=== PATIENT | female | born 1975 | race Caucasian/White ===

== ENCOUNTER 2021-07-04 12:45 | Emergency (ER) | payer MEDICAID ==
[~2021-07-04] VITALS: Ht 165.1 cm; Wt 75.5 kg
--- NOTE | 2021-07-04 12:45 | NUR ---
BIBRA 860 FOR C/O STOMACH DISCOMFORT & BLOODY EMESIS X3 SINCE LAST NIGHT. PT VITALS ARE WITHIN NORMAL LIMITS. BREATHING IS REGULAR AND UNLABORED. PT WAS ATTCHED TO ROBOTICS TECHNOLOGIST AND PULSE OX. WILL CONTINUE TO MONITOR.
--- NOTE | 2021-07-04 12:51 | NUR ---
IV LINE ESTABLISHED L HAND 20G. LABS WERE DRAWN AND AND SENT. LINE WAS CONVERTED TO SALINE LOCK.
--- NOTE | 2021-07-04 12:54 | NUR ---
URINE SPECIMEN WAS COLLECTED AND SENT TO LAB
[2021-07-04] MEDS ORDERED: CT SWABBABLE VALVE TRANS SET 1 EA INFUS.SET MC ONE (12:59)
[2021-07-04] MEDS ORDERED: IOHEXOL-300 100 ML VIAL IV ONE (12:59)
[2021-07-04] MEDS ORDERED: ONDANSETRON HCL/PF 4 MG/2 ML VIAL ONE (13:00)
[2021-07-04] MEDS: ONDANSETRON HCL/PF 4 MG/2 ML VIAL IVP ONE (13:00)
[2021-07-04] MEDS: IV NS 0.9% 1,000 ML BAG IV ONE (13:00)
[2021-07-04 13:06] LABS: BASOPHILS # (AUTO) 0.1 K/uL (0.0-0.2); BASOPHILS % (AUTO) 1.2 % (0.0-2.0); EOSINOPHILS % (AUTO) 1.8 % (0.0-6.0); HEMATOCRIT 36 % (33-45); HEMOGLOBIN 11.8 g/dL (11.5-14.8); MEAN CORPUSCULAR HGB CONC 33 g/dl (31.0-36.0); MEAN CORPUSCULAR VOLUME 85 fL (82-100); MONOCYTES # (AUTO) 0.3 K/uL (0.1-1.30); MONOCYTES % (AUTO) 4.5 % (2.0-12.0); NEUTROPHILS # (AUTO) 4.7 K/uL (1.8-8.9); NEUTROPHILS % (AUTO) 64.5 % (43.0-81.0); PLATELET COUNT (AUTO) 224 K/uL (150-450); RED BLOOD CELL COUNT(AUTO) 4.25 MIL/uL (4.0-5.2); WHITE BLOOD COUNT (AUTO) 7.3 K/uL (4.3-11.0)
[2021-07-04 13:11] LABS: CALCIUM, SERUM 8.6 mg/dL (8.5-10.1); CREATININE 0.7 mg/dL (0.6-1.3); POTASSIUM 3.9 mmol/L (3.5-5.1)
[2021-07-04 13:16] LABS: ALBUMIN 3.5 g/dL (3.4-5.0); BILIRUBIN,DIRECT 0.1 mg/dL (0.0-0.2); BILIRUBIN,TOTAL 0.2 mg/dL (0.2-1.0); TOTAL PROTEIN, SERUM 7.2 g/dL (6.4-8.2)
[2021-07-04 14:01] LABS: BILIRUBIN,URINE Negative (NEGATIVE); COLOR,URINE YELLOW (YELLOW); LEUKOCYTE ESTERASE ,URINE Trace (NEGATIVE); NITRITE, URINE Negative (NEGATIVE); PROTEIN,URINE Negative (NEGATIVE); UGLUCOSE Negative (NEGATIVE); UROBILINOGEN,URINE 0.2 EU/dL (0.2)
[2021-07-04 14:10] LABS: BACTERIA,URINE Few /HPF (None Seen); RBC,URINE NONE SEEN /HPF (0-2); SQUAMOUS EPITHELIAL CELL,UR Few /HPF (None Seen)
--- NOTE | 2021-07-04 15:20 | NUR ---
NEW LINE ESTABLISHED #20G IV R HAND AND CONVERTED TO SALINE LOCK
[2021-07-04] MEDS: OCTREOTIDE 50 MCG/ML AMPUL SQ ONE (15:30)
[2021-07-04] MEDS: PANTOPRAZOLE 40 MG VIAL IV ONE (15:30)
[2021-07-04] MEDS ORDERED: PANTOPRAZOLE 40 MG VIAL ONE (15:39)
[2021-07-04] MEDS ORDERED: OCTREOTIDE 100 MCG/ML VIAL ONE (15:40)
[2021-07-04] MEDS ORDERED: NORMAL SALINE FLUSH 10 ML SYR ONE (15:41)
[2021-07-04] MEDS ORDERED: PANT20TA2 PO (16:44)
[2021-07-04] MEDS ORDERED: ONDA4TAB5 PO (16:44)
--- NOTE | 2021-07-04 16:53 | NUR ---
IV removed. Catheter intact and site benign. Pressure and 4x4 applied to site. No bleeding noted.Patient discharged to home in stable condition. Written and verbal after care instructions given. Patient verbalizes understanding of instruction.
[2021-07-04 16:58] VITALS: BP 111/71
== END 2021-07-04 16:50 | disposition home or self-care (01) ==
LOC: ER 12:47
DX: K20.90 Esophagitis, unspecified without bleeding (principal); R11.2 Nausea with vomiting, unspecified; R10.13 Epigastric pain
CPT/HCPCS: 36415; 71045; 74177; 80048; 80076; 81001; 82962; 83690; 84703; 85025; 85730; 93005; 96361; 96372; 96374; 96375; 99285; A4216; C9113; J2354 ×2; J2405; J7030; Q9967

== ENCOUNTER 2024-11-02 17:18 | Emergency (ER) | payer MEDICAID ==
[~2024-11-02] VITALS: Ht 170.2 cm; Wt 99.8 kg
[~2024-11-02 17:18] MED LIST: ONDA4TAB5 PO; PANT20TA2 PO
[2024-11-02 17:23] VITALS: BP 101/55
[2024-11-02] MEDS ORDERED: BENZONATATE 100 MG CAPSULE PO ONE (17:31)
[2024-11-02] MEDS: BENZONATATE 100 MG CAPSULE PO PRN (17:38)
[2024-11-02] MEDS ORDERED: ACETAMINOPHEN ES 500 MG TABLET ONE (17:39)
[2024-11-02] MEDS: ACETAMINOPHEN ES 500 MG TABLET PO ONE (17:43)
[2024-11-02 18:44] VITALS: TEMP 98.9
[2024-11-02] MEDS ORDERED: ALBU18HF2 INH (18:56)
[2024-11-02] MEDS ORDERED: BENZ-13 PO (18:56)
[2024-11-02 18:59] VITALS: O2SAT 99
== END 2024-11-02 19:10 | disposition home or self-care (01) ==
LOC: ER 17:22
DX: R05.9 Cough, unspecified (principal); R51.9 Headache, unspecified; Z79.899 Other long term (current) drug therapy
CPT/HCPCS: 71045-TC